=== PATIENT | female | born 1990 | race Hispanic/Latino ===

== ENCOUNTER 2019-08-17 13:51 | Inpatient (IN) | payer BC, OTHER ==
[~2019-08-17] VITALS: Ht 154.9 cm; Wt 77.4 kg
[2019-08-17 14:40] LABS: APPEARANCE,URINE Clear (CLEAR); BILIRUBIN,URINE Negative (NEGATIVE); COLOR,URINE Dark Yellow (YELLOW); GLUCOSE, URINE (UA) Negative (NEGATIVE); KETONES,URINE Negative (NEGATIVE); LEUKOCYTE ESTERASE ,URINE Negative (NEGATIVE); NITRATE,URINE Negative (NEGATIVE); OCCULT BLOOD,URINE Negative (NEGATIVE); PROTEIN,URINE Negative (NEGATIVE)
[2019-08-17 14:41] LABS: HCG,QUAL RESULT NEGATIVE (NEGATIVE)
[2019-08-17] MEDS ORDERED: SODIUM CHLORIDE 0.9% 1000ML 1,000 ML IV ONE ×2 (14:46→16:12)
[2019-08-17 14:47] LABS: AMPHET/METH SCREEN,URINE NEGATIVE (NEGATIVE); BARBITURATE SCREEN, URINE NEGATIVE (NEGATIVE); BENZODIAZEPINES SCREEN,URINE NEGATIVE (NEGATIVE); CANNABINOID SCREEN,URINE NEGATIVE (NEGATIVE); COCAINE SCREEN,URINE NEGATIVE (NEGATIVE); OPIATE SCREEN,URINE NEGATIVE (NEGATIVE); PHENCYCLIDINE SCREEN,URINE NEGATIVE (NEGATIVE)
[2019-08-17] MEDS ORDERED: MORPHINE SULFATE 4 MG/1ML SYG ONE (14:47)
[2019-08-17] MEDS ORDERED: ONDANSETRON HCL 4 MG/2 ML VIAL ONE (14:47)
[2019-08-17] MEDS ORDERED: FAMOTIDINE/PF 20 MG/2 ML VIAL IV ONE (14:47)
[2019-08-17 15:10] LABS: BASOPHILS % (AUTO) 0.5 % (0.0-5.0); EOSINOPHILS % (AUTO) 0.7 % (0.0-8.0); MEAN CORPUSCULAR HEMOGLOBIN 30.7 pg (27.0-33.0); MEAN CORPUSCULAR HGB CONC 34.4 g/dL (32.0-36.0); MEAN CORPUSCULAR VOLUME 89.2 fL (79-99); MONOCYTES % (AUTO) 7.2 % (3.0-13.0); NEUTROPHILS % (AUTO) 74.6 % (40.0-77.0); PLATELET COUNT (AUTO) 286 K/uL (130-400); RED BLOOD CELL COUNT(AUTO) 4.37 MIL/uL (4.00-5.50); RED CELL DISTRIBUTION WIDTH 13.1 % (11.0-15.5); WHITE BLOOD COUNT (AUTO) 10.6 K/uL (4.8-10.8)
[2019-08-17 15:23] LABS: CREATININE 0.8 mg/dL (0.5-1.5); POTASSIUM 3.8 mmol/L (3.5-5.1)
[2019-08-17 15:28] LABS: BILIRUBIN,TOTAL 2.3 mg/dL (0.2-1.0); TOTAL PROTEIN, SERUM 7.6 g/dL (6.0-8.3)
[2019-08-17] MEDS ORDERED: IOHEXOL-350 75 ML VIAL IV ONE (15:28)
[2019-08-17] MEDS ORDERED: ONDANSETRON HCL 4 MG/2 ML VIAL IV PRN (19:00)
[2019-08-17] MEDS ORDERED: LACTATED RINGERS 1000ML 1,000 ML IV SCH (19:00)
[2019-08-17] MEDS ORDERED: MORPHINE SULFATE 2 MG/ML 1ML SYG ONE (20:37)
[2019-08-17] MEDS: FAMOTIDINE/PF 20 MG/2 ML VIAL IV SCH (21:00)
[2019-08-17 21:51] VITALS: BP 125/75
[2019-08-17] MEDS: SODIUM CHLORIDE 0.9% 1000ML 1,000 ML IV SCH (23:00)
[2019-08-17 23:36] VITALS: BP 108/68
[2019-08-18] MEDS: LACTATED RINGERS 1000ML 1,000 ML IV SCH ×6 (01:27→19:45)
[2019-08-18] MEDS: MORPHINE SULFATE 2 MG/ML 1ML SYG IVP PRN ×3 (02:46→19:45)
[2019-08-18 03:20] VITALS: BP 117/52
[2019-08-18 05:01] LABS: BASOPHILS % (AUTO) 0.3 % (0.0-5.0); EOSINOPHILS % (AUTO) 0.6 % (0.0-8.0); HEMATOCRIT 34.1 % (36-48); LYMPHOCYTES % (AUTO) 19.8 % (21.0-51.0); MEAN CORPUSCULAR HEMOGLOBIN 30.4 pg (27.0-33.0); MEAN CORPUSCULAR HGB CONC 33.7 g/dL (32.0-36.0); MEAN CORPUSCULAR VOLUME 90.1 fL (79-99); MONOCYTES % (AUTO) 5.8 % (3.0-13.0); NEUTROPHILS % (AUTO) 73.5 % (40.0-77.0); PLATELET COUNT (AUTO) 217 K/uL (130-400); RED BLOOD CELL COUNT(AUTO) 3.78 MIL/uL (4.00-5.50); RED CELL DISTRIBUTION WIDTH 13.4 % (11.0-15.5); WHITE BLOOD COUNT (AUTO) 9.1 K/uL (4.8-10.8)
[2019-08-18 05:32] LABS: ALBUMIN 3.1 g/dL (3.5-5.0); CREATININE 0.7 mg/dL (0.5-1.5); POTASSIUM 3.7 mmol/L (3.5-5.1); TOTAL PROTEIN, SERUM 6.1 g/dL (6.0-8.3)
[2019-08-18] MEDS: SODIUM CHLORIDE 0.9% 1000ML 1,000 ML IV SCH ×3 (06:36→23:00)
[2019-08-18 08:29] VITALS: BP 104/72
[2019-08-18] MEDS: FAMOTIDINE/PF 20 MG/2 ML VIAL IV SCH ×2 (09:40→19:45)
[2019-08-18 11:46] VITALS: BP 107/59
--- NOTE | 2019-08-18 12:20 | NUR ---
DCP CM met with pt discussed dc plans. Pt is independent prior to admission, lives at home w/spouse. Denies any equipments/services. Pt feels safe to go back home, still works and drives, spouse able to assist with transportation and needs as necessary. DC plan to home once stable. CM to cont to follow up. Addendum: 08/18/19 at 1221 by MAYKEL LOPEZ LVN CM Amended: Links added.
--- NOTE | 2019-08-18 14:48 | NUR ---
SPOKE TO DR. CLEMENTS REGARDING MRCP RESULTS. NEW ORDERS FOR LFT'S IN AM. PENDING LFT RESULTS WITH POSSIBLE EUS IN AM.
[2019-08-18 16:00] VITALS: BP 111/66
[2019-08-18 19:58] VITALS: BP 107/67
[2019-08-18 23:40] VITALS: BP 101/51
[2019-08-19] MEDS: LACTATED RINGERS 1000ML 1,000 ML IV SCH ×3 (01:00→18:42)
[2019-08-19] MEDS: MORPHINE SULFATE 2 MG/ML 1ML SYG IVP PRN (02:59)
[2019-08-19 04:00] VITALS: BP 97/52
[2019-08-19 05:38] LABS: BASOPHILS % (AUTO) 0.3 % (0.0-5.0); EOSINOPHILS % (AUTO) 0.7 % (0.0-8.0); HEMATOCRIT 31.9 % (36-48); LYMPHOCYTES % (AUTO) 23.6 % (21.0-51.0); MEAN CORPUSCULAR HEMOGLOBIN 30.4 pg (27.0-33.0); MEAN CORPUSCULAR HGB CONC 33.6 g/dL (32.0-36.0); MEAN CORPUSCULAR VOLUME 90.5 fL (79-99); MONOCYTES % (AUTO) 5.6 % (3.0-13.0); NEUTROPHILS % (AUTO) 69.8 % (40.0-77.0); PLATELET COUNT (AUTO) 224 K/uL (130-400); RED BLOOD CELL COUNT(AUTO) 3.52 MIL/uL (4.00-5.50); RED CELL DISTRIBUTION WIDTH 13.4 % (11.0-15.5); WHITE BLOOD COUNT (AUTO) 6.9 K/uL (4.8-10.8)
[2019-08-19 05:48] LABS: ALBUMIN 2.8 g/dL (3.5-5.0); BILIRUBIN,DIRECT 0.5 mg/dL (0.0-0.3); BILIRUBIN,TOTAL 1.1 mg/dL (0.2-1.0); CREATININE 0.7 mg/dL (0.5-1.5); POTASSIUM 3.6 mmol/L (3.5-5.1)
[2019-08-19 08:00] VITALS: BP 103/68
[2019-08-19] MEDS: FAMOTIDINE/PF 20 MG/2 ML VIAL IV SCH ×2 (08:53→19:27)
[2019-08-19 11:00] VITALS: BP 117/71
[2019-08-19] MEDS ORDERED: BISACODYL 10 MG SUPP.RECT RC SCH (12:30)
[2019-08-19 16:00] VITALS: BP 111/60
[2019-08-19 20:00] VITALS: BP 123/70
[2019-08-20] VITALS: BP 121/74
[2019-08-20] MEDS: LACTATED RINGERS 1000ML 1,000 ML IV SCH ×2 (00:16→05:00)
[2019-08-20] MEDS: MORPHINE SULFATE 2 MG/ML 1ML SYG IVP PRN (00:46)
[2019-08-20 04:00] VITALS: BP 112/61
[2019-08-20 06:27] LABS: BASOPHILS % (AUTO) 0.7 % (0.0-5.0); EOSINOPHILS % (AUTO) 1.8 % (0.0-8.0); HEMATOCRIT 32.1 % (36-48); LYMPHOCYTES % (AUTO) 41.3 % (21.0-51.0); MEAN CORPUSCULAR HEMOGLOBIN 30.8 pg (27.0-33.0); MEAN CORPUSCULAR HGB CONC 34.3 g/dL (32.0-36.0); MEAN CORPUSCULAR VOLUME 89.9 fL (79-99); MONOCYTES % (AUTO) 8.6 % (3.0-13.0); NEUTROPHILS % (AUTO) 47.6 % (40.0-77.0); PLATELET COUNT (AUTO) 223 K/uL (130-400); RED BLOOD CELL COUNT(AUTO) 3.57 MIL/uL (4.00-5.50); RED CELL DISTRIBUTION WIDTH 13.5 % (11.0-15.5); WHITE BLOOD COUNT (AUTO) 5.8 K/uL (4.8-10.8)
[2019-08-20 07:57] VITALS: BP 115/68
[2019-08-20] MEDS: FAMOTIDINE/PF 20 MG/2 ML VIAL IV SCH (08:44)
[2019-08-20 09:18] LABS: CREATININE 0.8 mg/dL (0.5-1.5)
[2019-08-20 12:00] VITALS: BP 120/74
[2019-08-20 12:19] LABS: POTASSIUM 3.3 mmol/L (3.5-5.1)
[2019-08-20 12:36] LABS: CHOLESTEROL 205 mg/dL (<200); HDL CHOLESTEROL 44 mg/dL (35-85); LDL DIRECT 112 mg/dL (0-99); TRIGLYCERIDES 68 mg/dL (30-200)
--- NOTE | 2019-08-20 16:05 | NUR ---
DISCHARGE PATIENT GIVEN DISCHARGE INSTRUCTIONS VIA TEACH JV BY AKIN NOBLES (CHARGE NURSE). PATIENT TO MAKE FOLLOW UP APPOINTMENTS WITH LISETTE MUIR AND DR. CLEMENTS. NO RX GIVEN. PATIENT TO CONTINUE WITH LOW FAT DIET. PATIENT STABLE AT THIS TIME. PATIENT ESCORTED TO [facility] BY AKIN NOBLES ([facility]).
== END 2019-08-20 16:10 | disposition home or self-care (01) | DRG 440 ==
LOC: EDH 13:51 → EDHIP 18:48 → 3BH 22:00
PROVIDERS: ADMIT Internal Medicine; ATTEND Internal Medicine
DX: K85.90 Acute pancreatitis without necrosis or infection, unspecified (principal); Z90.49 Acquired absence of other specified parts of digestive tract
CPT/HCPCS: 36415; 71045; 74177; 74181; 76705; 80048; 80053; 80061; 80076; 80305; 81003; 81025; 82150; 83690; 85025; G0378; J2270; J2405; J3490; J7030; J7120; Q9967

== ENCOUNTER 2021-06-03 18:25 | Emergency (ER) | payer BC ==
[~2021-06-03] VITALS: Ht 154.9 cm; Wt 86.2 kg
[2021-06-03 18:26] VITALS: BP 125/79
[2021-06-03 19:29] VITALS: BP 127/56
[2021-06-03] MEDS ORDERED: ONDANSETRON 4MG INJ IVP ONE (19:30)
[2021-06-03] MEDS ORDERED: 0.9%NACL 1000ML 1,000 ML IV ONE (19:30)
[2021-06-03 19:41] LABS: BASOPHILS % (AUTO) 0.3 % (0.0-5.0); EOSINOPHILS % (AUTO) 2.4 % (0.0-8.0); HEMATOCRIT 35.9 % (36-48); MEAN CORPUSCULAR HEMOGLOBIN 30.3 pg (27.0-33.0); MEAN CORPUSCULAR HGB CONC 33.1 g/dL (32.0-36.0); MEAN CORPUSCULAR VOLUME 91.3 fL (79-99); MONOCYTES % (AUTO) 8.6 % (3.0-13.0); NEUTROPHILS % (AUTO) 64.4 % (40.0-77.0); PLATELET COUNT (AUTO) 260 K/uL (130-400); RED BLOOD CELL COUNT(AUTO) 3.93 MIL/uL (4.00-5.50); RED CELL DISTRIBUTION WIDTH 12.3 % (11.0-15.5); WHITE BLOOD COUNT (AUTO) 6.7 K/uL (4.8-10.8)
[2021-06-03 19:44] LABS: APPEARANCE,URINE Clear (CLEAR); BILIRUBIN,URINE Negative (NEGATIVE); COLOR,URINE Yellow (YELLOW); GLUCOSE, URINE (UA) Negative (NEGATIVE); KETONES,URINE Negative (NEGATIVE); LEUKOCYTE ESTERASE ,URINE Negative (NEGATIVE); NITRATE,URINE Negative (NEGATIVE); OCCULT BLOOD,URINE Negative (NEGATIVE); PH,URINE 5.5 (5.0-8.0); PROTEIN,URINE Negative (NEGATIVE)
[2021-06-03 19:47] LABS: HCG,QUAL RESULT NEGATIVE (NEGATIVE)
[2021-06-03 20:02] LABS: CREATININE 0.8 mg/dL (0.5-1.5); POTASSIUM 3.6 mmol/L (3.5-5.1)
[2021-06-03 20:06] LABS: ALBUMIN 3.6 g/dL (3.5-5.0); BILIRUBIN,TOTAL 0.4 mg/dL (0.2-1.0); TOTAL PROTEIN, SERUM 7.6 g/dL (6.0-8.3)
[2021-06-03] MEDS ORDERED: METR500T PO (20:21)
[2021-06-03] MEDS ORDERED: DICY20TA2 PO (20:21)
[2021-06-03] MEDS ORDERED: LEVO500T89 PO (20:21)
[2021-06-03] MEDS ORDERED: METRONIDAZOLE 500 MG TABLET ONE (20:29)
[2021-06-03] MEDS ORDERED: METRONIDAZOLE 500 MG TABLET PO ONE (20:30)
[2021-06-03] MEDS ORDERED: LEVOFLOXACIN 500 MG TABLET ONE (20:30)
[2021-06-03] MEDS ORDERED: LEVOFLOXACIN 500 MG TABLET PO ONE (20:30)
== END 2021-06-03 21:30 | disposition home or self-care (01) ==
LOC: EDH 18:25
DX: K52.9 Noninfective gastroenteritis and colitis, unspecified (principal); Z20.822 Contact with and (suspected) exposure to COVID-19; Z79.899 Other long term (current) drug therapy
CPT/HCPCS: 36415; 80053; 81003; 81025; 83605; 83690; 85025; 87040 ×2; 87635; 96361; 96374; 99284; C9803; J2405; J7030

== ENCOUNTER 2023-08-12 02:22 | Emergency (ER) | payer BC ==
[~2023-08-12] VITALS: Ht 154.9 cm; Wt 89.4 kg
[~2023-08-12 02:22] MED LIST: DICY20TA2 PO; LEVO-70 PO; METR500T PO
[2023-08-12 02:24] VITALS: BP 150/118; PULSE 69; RESP 20
== END 2023-08-12 06:16 | disposition left against medical advice (07) ==
LOC: EDH 02:22
DX: R11.2 Nausea with vomiting, unspecified (principal); R10.11 Right upper quadrant pain; Z53.21 Procedure and treatment not carried out due to patient leaving prior to being seen by health care provider